=== PATIENT | female | born 1960 | race Caucasian/White ===

== ENCOUNTER → 2022-08-14 | Day surgery (SDC) | payer OTHER ==
[2022-08-14 07:04] VITALS: BP 100/86; PULSE 88; RESP 16; TEMP 97.7; BMI 33.7
== END | disposition home or self-care (01) ==
LOC: FASU 06:09
PROVIDERS: ATTEND Orthopaedic Surgery Sports Medicine
PROC: 0SBC4ZZ Excision of Right Knee Joint, Percutaneous Endoscopic Approach (ICD-10-PCS; principal; 2022-08-14)
DX: X58.XXXA Exposure to other specified factors, initial encounter (principal); Y93.9 Activity, unspecified; Y92.9 Unspecified place or not applicable

== ENCOUNTER 2022-08-31 06:03 | Day surgery (SDC) | payer OTHER ==
[2022-08-24 17:25] VITALS: BMI 33.7
[2022-08-31] MEDS ORDERED: ONDANSETRON 4 MG/2 ML VIAL ONE ×3 (07:12→09:18)
[2022-08-31] MEDS ORDERED: PROPOFOL 20 ML ONE (07:12)
[2022-08-31] MEDS ORDERED: DEXAMETHASONE SOD PHOSPHATE 4 MG/1 ML VIAL ONE ×2 (07:12→08:13)
[2022-08-31] MEDS ORDERED: MIDAZOLAM HCL 2 MG/2 ML SINGLE DOSE VIAL ONE (07:12)
[2022-08-31] MEDS ORDERED: BUPIVACAINE HCL 100 ML ONE (07:16)
[2022-08-31] MEDS ORDERED: EPINEPHrine 1:1,000 1,000 MCG/ML ML ONE (07:16)
[2022-08-31] MEDS ORDERED: BUPIVACAINE HCL/PF 0.25% (2.5MG/ML) 10 ML VIAL ONE (07:30)
[2022-08-31] MEDS ORDERED: ceFAZolin SODIUM 1 GM VIAL ONE (07:46)
[2022-08-31] MEDS: FENTANYL CITRATE/PF 50 MCG/ML VIAL ONE ×2 (08:45→08:56)
[2022-08-31] MEDS ORDERED: FENTANYL CITRATE/PF 50 MCG/ML VIAL ONE (08:55)
[2022-08-31] MEDS ORDERED: oxyCODONE HCL 5 MG TABLET PO PRN ×2 (09:07)
[2022-08-31] MEDS ORDERED: ONDANSETRON 4 MG/2 ML VIAL IVPUSH PRN (09:07)
[2022-08-31] MEDS ORDERED: LACTATED RINGERS SOLUTION 1,000 ML IV SCH (09:15)
[2022-08-31] MEDS ORDERED: oxyCODONE HCL 5 MG TABLET ONE (10:02)
[2022-08-31 10:36] VITALS: RESP 18; TEMP 97.5
[2022-08-31 11:06] VITALS: BP 120/72; PULSE 64
== END 2022-08-31 11:08 | disposition home or self-care (01) ==
LOC: FASU 06:03
PROVIDERS: ATTEND Orthopaedic Surgery Sports Medicine
PROC: 0SBC4ZZ Excision of Right Knee Joint, Percutaneous Endoscopic Approach (ICD-10-PCS; principal; 2022-08-31 07:57)
DX: S83.281A Other tear of lateral meniscus, current injury, right knee, initial encounter (principal); M94.261 Chondromalacia, right knee; M65.9 Synovitis and tenosynovitis, unspecified; X58.XXXA Exposure to other specified factors, initial encounter; Y93.9 Activity, unspecified; Y92.9 Unspecified place or not applicable
CPT/HCPCS: 94760